=== PATIENT | female | born 1965 | race African-American/Black ===

== ENCOUNTER → 2017-04-02 13:07 | Emergency (ER) | payer MEDICARE, MEDICAID ==
--- NOTE | 2017-04-02 14:27 | RAD ---
INDICATION: Bruising and pain at the right middle finger since injury 2 days earlier TECHNIQUE: 3 views of the right middle finger were obtained. FINDINGS: The bones are normal alignment. Joint spaces appear maintained. No fracture is seen. IMPRESSION: NO EVIDENCE FOR FRACTURE. IF THE PATIENT'S SYMPTOMS PERSIST RECOMMEND FOLLOW-UP IMAGING.
[2017-04-02 14:42] VITALS: BP 144/76
--- NOTE | 2017-04-02 18:10 | ED ---
Upper Extremity Pain - HPI Summary HPI Summary: 51 y/o female with multiple medical co-morbities presents for crush injury to middle finger after catching in cabinet >24 hours prior. Pain not treated well with motrin. patient has increased pain at tip of finger, able to move hand, wrist, no other complaints. - History of Current Complaint Chief Complaint: EDExtremityUpper Stated Complaint: RT HAND/FINGER INJURY Time Seen by Provider: 04/02/17 13:48 Hx Obtained From: Patient Onset/Duration: Started Days Ago Timing: Constant Severity Initially: Moderate Severity Currently: Moderate Pain Location: Finger Character: Sharp, Throbbing Aggravating Factor(s): Movement, Lifting Alleviating Factor(s): Rest Associated Signs & Symptoms: Positive: Swelling, Redness, Bruising, Numbness/ Tingling - Allergies/Home Medications Allergies/Adverse Reactions: Allergies Allergy/AdvReac Type Severity Reaction Status Date / Time Cephalexin [From Keflex] AdvReac Intermediate See Comment Verified 04/02/17 13: 13 statin Allergy Muscle Ache Uncoded 04/02/17 13:13 PMH/Surg Hx/FS Hx/Imm Hx Previously Healthy: No - dm, htn, hiv + Endocrine/Hematology History: Reports: Hx Diabetes Cardiovascular History: Denies: Hx Pacemaker/ICD Musculoskeletal History: Denies: Hx Scoliosis Sensory History: Denies: Hx Hearing Aid Neurological History: Denies: Hx Headaches, Other Neuro Impairments/Disorders Psychiatric History: Denies: Hx Panic Disorder - Surgical History Surgery Procedure, Year, and Place: BILAT CTR, CARDIAC STENT, BIOPSY BREAST ( BENIGN) - Immunization History Date of Tetanus Vaccine: Up to date Date of Influenza Vaccine: Fall 2011 Infectious Disease History: No Infectious Disease History: Reports: Hx Human Immunodeficiency Virus (HIV) Denies: Traveled Outside the [place] in Last 30 Days - Social History Substance Use Type: Reports: None Review of Systems Positive: Arthralgia, Myalgia, Edema Positive: Bruising All Other Systems Reviewed And Are Negative: Yes Physical Exam - Summary Physical Exam Summary: right middle finger distal phalanx with bruising at distal part of nail with subungal hemtoma tender to moderate palpation, moderate edema through DIP, full F/ E of DIP, PIP MCP and all other joints of R UE, rad/ ulnar pulses 2+, Triage Information Reviewed: Yes Vital Signs On Initial Exam: Initial Vitals Temp Pulse Resp BP Pulse Ox 96.7 F 86 16 145/85 97 04/02/17 13:09 04/02/17 13:09 04/02/17 13:09 04/02/17 13:09 04/02/17 13:09 Vital Signs Reviewed: Yes Appearance: Positive: Well-Appearing, No Pain Distress, Well-Nourished Musculoskeletal: Positive: Other - see above Neurological: Positive: Normal, Sensory/Motor Intact, CN Intact II-III Diagnostics - Vital Signs Vital Signs Temp Pulse Resp BP Pulse Ox 04/02/17 14:40 97.3 F 81 16 144/76 04/02/17 13:09 96.7 F 86 16 145/85 97 - Laboratory Lab Statement: Any lab studies that have been ordered have been reviewed, and results considered in the medical decision making process. Course/Dx - Course Course Of Treatment: radiograph neg for fracture, pain medication given, no procedure due to patients increased infection risk and no involvment of nail bed. follow up with PCP - Diagnoses Differential Diagnosis/HQI/PQRI: Positive: Burn, Hematoma, Laceration, Strain, Sprain Provider Diagnoses: Subungual hematoma Discharge - Discharge Plan Condition: Good Disposition: HOME Prescriptions: Hydrocodone-Acetaminophen [[place] 5-325 mg] 1 tab PO Q6HR PRN #5 tab MDD 3 PRN Reason: Pain Patient Education Materials: Crush Injury (ED) Referrals: Soraya London MD [Primary Care Provider] - Additional Instructions: - norco as needed for severe pain - Over the counter medication for mild to moderate pain -
== END | disposition home or self-care (01) ==
LOC: ED 13:07
DX: S60.131A Contusion of right middle finger with damage to nail, initial encounter (principal); W23.0XXA Caught, crushed, jammed, or pinched between moving objects, initial encounter; Y92.9 Unspecified place or not applicable; E11.9 Type 2 diabetes mellitus without complications
CPT/HCPCS: 73140; 99282

== ENCOUNTER 2017-04-06 15:44 | Emergency (ER) | payer MEDICARE, MEDICAID ==
[2017-04-06 16:19] VITALS: BP 114/65
--- NOTE | 2017-04-06 17:23 | UC ---
Skin Complaint HPI - History of Current Complaint Chief Complaint: UCSkin Time Seen by Provider: 04/06/17 17:07 Stated Complaint: INFECTED FINGER Hx Obtained From: Patient Onset/Duration: Sudden Onset - started few days ago when reached into cabinate and sharp piece of wood jabbed finger.Was seen at ER and Xray was taken-no F/B over past few days, R third finger has gotten swollen and painful Aggravating Factor(s): Touch Alleviating Factor(s): Nothing Associated Signs & Symptoms: Positive: Negative Related History: Trauma - Allergy/Home Medications Allergies/Adverse Reactions: Allergies Allergy/AdvReac Type Severity Reaction Status Date / Time Cephalexin [From Keflex] AdvReac Intermediate See Comment Verified 04/06/17 16: 19 statin Allergy Muscle Ache Uncoded 04/06/17 16:19 Home Medications: Home Medications Ascorbic Acid TAB* [Vitamin C TAB*] 500 mg PO DAILY 04/06/17 [History Confirmed 04/06/17] Biotin 1 mg PO 04/06/17 [History] Emtricitabine/Tenofovir (NF) [Descovy (Nf)] 1 tab PO DAILY 04/06/17 [History Confirmed 04/06/17] Folic Acid 5 mg PO 04/06/17 [History] [place]-3 Fatty Acids [Fish Oil] 1,000 mg PO 04/06/17 [History] Omeprazole [Prilosec] 20 mg PO 04/06/17 [History] Review of Systems Constitutional: Negative Skin: Other - see note Respiratory: Negative Cardiovascular: Negative Musculoskeletal: Negative Neurological: Negative Psychological: Negative All Other Systems Reviewed And Are Negative: Yes PMH/Surg Hx/FS Hx/Imm Hx Previously Healthy: Yes Endocrine History: Diabetes Cardiovascular History: Cardiac Disease, Hypertension - Surgical History Surgical History: Yes Surgery Procedure, Year, and Place: BILAT CTR, CARDIAC STENT, BIOPSY BREAST ( BENIGN) - Family History Known Family History: Positive: Hypertension - Social History 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 Lives: With Family Alcohol Use: None Substance Use Type: None Smoking Status (MU): Never Smoked Tobacco Physical Exam Triage Information Reviewed: Yes Appearance: Well-Appearing, No Pain Distress, Well-Nourished Vital Signs: Initial Vital Signs Temp 97.4 F 04/06/17 16:14 Pulse 95 04/06/17 16:14 Resp 18 04/06/17 16:14 BP 114/65 04/06/17 16:14 Pulse Ox 100 04/06/17 16:14 Vital Signs Reviewed: Yes Respiratory Exam: Normal Cardiovascular Exam: Normal Musculoskeletal Exam: Normal Psychological Exam: Normal Skin Exam: Other - swollen, erythemic right 3rd finger with fluctuant area Course/Dx - Course Course Of Treatment: Procedure: R 3rd finger: cleansed with hibiclens solution and small inc made with #11 blade. moderate amount purulent drainage expressed from paronychia. wound cleansed again and bacitracin dressing applied - Differential Diagnoses - Skin Complaint Differential Diagnoses: Abscess, Cellulitis, VRE, Other - paronychia - Diagnoses Provider Diagnoses: paronychia R 3rd finger Discharge - Discharge Plan Condition: Stable Disposition: HOME Prescriptions: Amoxicillin/Clavulanate TAB* [Augmentin TAB 875*] 875 mg PO BID #12 tab Patient Education Materials: Wound Infection (ED) Referrals: Soraya London MD [Primary Care Provider] - 2 Days (if no better) Additional Instructions: soak finger in warm soapy water for 15 minutes twice a day and put ointment and bandaid on take antibiotic as directed elevate hand as much as possible
[2017-04-06] MEDS ORDERED: Amoxicillin/Clavulanate TAB* 875 MG PO ONE (17:42)
== END 2017-04-06 17:58 | disposition home or self-care (01) ==
LOC: UCEAST 15:44
DX: L03.011 Cellulitis of right finger (principal); E11.9 Type 2 diabetes mellitus without complications; I51.9 Heart disease, unspecified; I10 Essential (primary) hypertension; Z95.5 Presence of coronary angioplasty implant and graft; Z88.1 Allergy status to other antibiotic agents
CPT/HCPCS: 10060; 99212; A9270-GY; G0463

== ENCOUNTER 2017-06-11 12:16 | Emergency (ER) | payer MEDICARE, MEDICAID ==
--- NOTE | 2017-06-11 12:44 | UC ---
Skin Complaint HPI - HPI Summary HPI Summary: 52 y/o female presents to the urgent care c/o Rt middle finger red and swollen for the past week. Pt reports she injured same finger on 04/06/2017 with a wooden cabinet, she went to ER ro r/o fracture. 2 days later she developed infection, [facility] to [facility]. she was placed on ABX. 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 Pain is with touch 4/10, she can move finger w /o any difficulty. Pt denies fever, numbness or tingling, SOB, chest pain, abdominal pain, N/V/D - History of Current Complaint Time Seen by Provider: 06/11/17 12:42 Stated Complaint: FINGER INJURY Hx Obtained From: Patient ?: No Onset/Duration: Gradual Onset, Lasting Weeks - 1 week, Still Present Skin Exposure Onset/Duration: Weeks Ago Timing: Constant Onset Severity: Mild Current Severity: Moderate Pain Intensity: 5 Pain Scale Used: 0-10 Numeric Location: Hand (Right) - Rt middle finger with small abscess Character: Swelling, Redness, Painful Aggravating Factor(s): Touch Alleviating Factor(s): Cold, Cold Compresses Associated Signs & Symptoms: Positive: Tenderness. Negative: Fever, Chills, Red Streaks Related History: Trauma Prior Episode Dx as Allergic Reactions to:: paronychia on 04/06/2017 - Allergy/Home Medications Allergies/Adverse Reactions: Allergies Allergy/AdvReac Type Severity Reaction Status Date / Time Cephalexin [From Keflex] AdvReac Intermediate See Comment Verified 06/11/17 13: 08 statin Allergy Muscle Ache Uncoded 06/11/17 13:08 Review of Systems Constitutional: Negative Skin: Other - small cyst at the Rt middle finger with swelling, redness and pain Eyes: Negative ENT: Negative Respiratory: Negative Cardiovascular: Negative Gastrointestinal: Negative Genitourinary: Negative Motor: Negative Neurovascular: Negative Musculoskeletal: Negative Neurological: Negative Psychological: Negative Is Patient Immunocompromised?: No All Other Systems Reviewed And Are Negative: Yes PMH/Surg Hx/FS Hx/Imm Hx Previously Healthy: Yes Endocrine History: Diabetes, Dyslipidemia Cardiovascular History: Myocardial Infarction GI/ History: Gastroesophageal Reflux - Surgical History Surgical History: Yes Surgery Procedure, Year, and Place: BILAT CTR, CARDIAC STENT, BIOPSY BREAST ( BENIGN) - Family History Known Family History: Positive: Hypertension, Diabetes - Social History Alcohol Use: None Substance Use Type: None Smoking Status (MU): Never Smoked Tobacco Physical Exam Triage Information Reviewed: Yes - Additional Comments Vital Signs Reviewed: Yes General: well developed, well nourished female sitting in the examining table w/ o any apparent distress Eye Exam: Normal Eyes: Positive: Conjunctiva Clear - PERRLA, EOMI, fundi grossly normal ENT: Positive: Normal ENT inspection, Hearing grossly normal, Pharynx normal, TMs normal Neck: Positive: Supple, Nontender, No Lymphadenopathy Respiratory: Positive: Chest non-tender, Lungs clear, Normal breath sounds, No respiratory distress Cardiovascular: Positive: RRR, No Murmur, Pulses Normal, Brisk Capillary Refill Abdomen Description: Positive: Nontender, No Organomegaly, Soft. Negative: CVA Tenderness (R), CVA Tenderness (L) Bowel Sounds: Positive: Present Musculoskeletal: Positive: Strength Intact, ROM Intact, No Edema Neurological: Positive: Alert, Muscle Tone Normal Psychological Exam: Normal Skin: Positive: RT # 3 phalanx near DIPJ with a small erythematous pustule that is indurated and fluctuates, tender to palpation, swollen, and warm to touch about .5cm in size. FROM of phalanx, sensation is intact, capillary refill WNL, reflexes WNL Course/Dx - Course Course Of Treatment: 52 y/o female presents to the urgent care c/o Rt middle finger red and swollen for the past week. Pt reports she injured same finger on 04/06/2017 with a wooden cabinet, she went to ER ro r/o fracture. 2 days later she developed infection, she came to the [facility] for [facility]. she was placed on ABX. 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 Pain is with touch 4/10, she can move finger w/o any difficulty. Pt denies fever, numbness or tingling, SOB, chest pain, abdominal pain, N/V/D. Hx obtained. Pt with a small abscess at the RT #3 phalanx DIPJ on examination. I&D of abscess procedure:The procedure was explained and consent obtained. [place] protocol performed. Pt declined Lidocaine. area cleaned with iodine 3X. Sterile drape and prep were done. The fluctuant center was incised with #11 blade scalpel. small amount of serosanguinous material was expressed . wound cultures obtained and sent to lab to r/o MRSA. The wound was irrigated with normal saline. Bacitracin topical ointment applied and wound covered with sterile dressing. The patient tolerated the procedure well. Pt Rx Bactrim PO and tylenol PO for pain. Advised to return to the urgent care for wound check up. Pt advised fever develops and pain increase despite ABX to go immediately to the ER for further management. Pt understood and agreed with D/C instructions. Left the clinic ambulating A&OX3. - Differential Diagnoses - Skin Complaint Differential Diagnoses: Abscess, Cellulitis, Contact Dermatitis, Local Allergic Reaction, Lymphadenitis, MRSA - Diagnoses Provider Diagnoses: 1- Rt #3 phalanx with small abscess near the DIP Discharge - Discharge Plan Condition: Stable Disposition: HOME Prescriptions: Acetaminophen TAB* [Tylenol TAB*] 650 mg PO Q4H PRN #20 tab PRN Reason: Pain Bacitracin OINTMENT* 1 applic TOPICAL TID #1 tube Sulfamethox/Trimethoprim DS* [Bactrim DS 800/160 TAB*] 1 tab PO BID #20 tab Patient Education Materials: Acute Wound Care (ED), Abscess (ED) Referrals: Soraya London MD [Primary Care Provider] - 3 Days Additional Instructions: 1-Please take full course of antibiotic to avoid resistance. Keep wound clean and dry with a sterile dressing. Apply bacitracin topical as directed 2-. Take Tylenol PO q6-8hrs prn for pain or swelling. 4-If you develop fever or redness despite antibiotic please go to the ER immediately or return to the Urgent care. 5- Wound culture sent to lab, if any abnormal result you will receive a call from us.
[2017-06-11 13:17] VITALS: BP 122/75
--- NOTE | 2017-06-12 10:08 | UC ---
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
--- NOTE | 2017-06-13 16:09 | UC ---
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
== END 2017-06-11 14:03 | disposition home or self-care (01) ==
LOC: UCEAST 12:16
DX: L02.511 Cutaneous abscess of right hand (principal)
CPT/HCPCS: 87070; 87205; 87640; 87641; 99212; G0463

== ENCOUNTER 2020-03-31 14:37 | Inpatient (IN) ==
[2020-03-31] MEDS ORDERED: methylPREDNISolone 125 mg 2 ML VIAL IV ONE (14:39)
[2020-03-31] MEDS ORDERED: NS 0.9% 1000 ml BAG 1,000 ML IV ONE (14:39)
[2020-03-31] MEDS ORDERED: Albuterol 2.5mg/3 ml (0.083%) NEB.SOLN INH ONE (14:39)
[2020-03-31 16:12] LABS: ABS Lymphocytes 1.1 10^3/ul (1.0-4.8); ABS Monocytes 0.4 10^3/ul (0-0.8); ABS Neutrophils 3.2 10^3/ul (1.5-7.7); Hematocrit 40 % (35-47); Hemoglobin 13.6 g/dL (12.0-16.0); Lymphocyte % 24.5 %; Mean Corpuscular HGB Conc 34 g/dL (31-36); Mean Corpuscular Hemoglobin 31 pg (27-31); Mean Corpuscular Volume 90 fL (80-97); Mean Platelet Volume 7.2 fL (7.4-10.4); Platelet Count 230 10^3/uL (150-450); Red Blood Count 4.42 10^6 /uL (3.70-4.87); Red Cell Distribution Width 15 % (10-15); White Blood Count 4.7 10^3/uL (3.5-10.8)
[2020-03-31 16:38] LABS: HCG Pregnancy 1.76 mIU/mL
[2020-03-31 16:48] LABS: Albumin 4.1 g/dL (3.2-5.2); Albumin/Globulin Ratio 1.1 (1-3); BUN/Creatinine Ratio 15.9 (8-20); C Reactive Protein 55.75 mg/L (<8.01); EGFR African American 87.3 (>60); EGFR Non-African American 72.1 (>60); Globulin 3.6 g/dL (2-4); Potassium 4.5 mmol/L (3.5-5.0); Total Bilirubin 0.4 mg/dL (0.2-1.0); Total Protein 7.7 g/dL (6.4-8.9)
[2020-03-31] MEDS ORDERED: Dextrose 50% Syringe 50 ml 25 GM/50 ML SYRINGE IV PUSH PRN (17:43)
[2020-03-31] MEDS ORDERED: Albuterol HFA INHALER 8 gm MDI INH PRN (17:55)
[2020-03-31] MEDS ORDERED: Al Hydrox/Mg Hydrox/Simet LIQ 30 ML UDC PO PRN (18:23)
[2020-03-31] MEDS ORDERED: Ondansetron 4 mg VIAL 2 MG/ML 2 ml VIAL IV PRN (18:23)
[2020-03-31] MEDS ORDERED: Enoxaparin 40 MG/0.4 ML SYR SUBCUT SCH (19:00)
[2020-03-31] MEDS ORDERED: Remdesivir 5 MG/ML LIQ IV Vial 200 MG in NS 0.9% 250 ml 210 ML IV ONE (19:08)
[2020-03-31] MEDS ORDERED: Iodixanol (CONTRAST) 320 MG/ML 100 ML SDV IV ONE (20:13)
[2020-03-31] MEDS ORDERED: Remdesivir 5 MG/ML LIQ IV Vial 100 MG in NS 0.9% 250 ml 230 ML IV SCH (22:00)
[2020-03-31] MEDS: Enoxaparin 30 MG/0.3 ML SYR SUBCUT SCH (22:04)
[2020-04-01 01:14] LABS: Influenza A Molecular Negative (Negative); Influenza B Molecular Negative (Negative)
[2020-04-01] MEDS: Enoxaparin 30 MG/0.3 ML SYR SUBCUT SCH ×2 (08:58→20:06)
[2020-04-01] MEDS: Aspirin EC 81 mg TAB.EC (enteric coated) PO SCH (08:59)
[2020-04-01] MEDS: Dexamethasone IV 4 MG/ML VIAL 1 ml VIAL IV SLOW PU SCH (08:59)
[2020-04-01] MEDS ORDERED: EMTRICITABINE PO SCH (09:00)
[2020-04-01] MEDS ORDERED: TENOFOVIR PO SCH (09:00)
[2020-04-01] MEDS: Remdesivir 5 MG/ML LIQ IV Vial 100 MG in NS 0.9% 250 ml 230 ML IV SCH (21:31)
[2020-04-02] MEDS: TENOFOVIR PO SCH (09:25)
[2020-04-02] MEDS: Dexamethasone IV 4 MG/ML VIAL 1 ml VIAL IV SLOW PU SCH (09:25)
[2020-04-02] MEDS: Aspirin EC 81 mg TAB.EC (enteric coated) PO SCH (09:25)
[2020-04-02] MEDS: EMTRICITABINE PO SCH (09:25)
[2020-04-02] MEDS: Enoxaparin 30 MG/0.3 ML SYR SUBCUT SCH ×2 (09:34→22:29)
[2020-04-02] MEDS: Remdesivir 5 MG/ML LIQ IV Vial 100 MG in NS 0.9% 250 ml 230 ML IV SCH (22:33)
[2020-04-03] MEDS: Aspirin EC 81 mg TAB.EC (enteric coated) PO SCH (08:50)
[2020-04-03] MEDS: Dexamethasone IV 4 MG/ML VIAL 1 ml VIAL IV SLOW PU SCH (08:50)
[2020-04-03] MEDS: EMTRICITABINE PO SCH (08:50)
[2020-04-03] MEDS: TENOFOVIR PO SCH (08:50)
[2020-04-03] MEDS: Enoxaparin 30 MG/0.3 ML SYR SUBCUT SCH (08:52)
[2020-04-03 12:59] VITALS: BP 133/64
== END 2020-04-03 15:25 | disposition home or self-care (01) | DRG 177 ==
LOC: ED 14:37 → MED 18:23
PROVIDERS: ADMIT Internal Medicine; ATTEND Internal Medicine

== ENCOUNTER 2023-12-10 02:38 | Observation (INO) ==
[2023-12-10 03:02] LABS: ABS Eosinophils 0.1 10^3/uL (0.0-0.5); ABS Lymphocytes 2.4 10^3/uL (1.0-4.8); ABS Monocytes 0.4 10^3/uL (0.0-0.9); ABS Neutrophils 3.5 10^3/uL (1.5-7.6); ABS Nucleated RBC 0.01 10^3/ul; Eosinophil % 2.2 %; Hematocrit 45.5 % (35-45); Hemoglobin 15.2 g/dL (11.5-14.3); Lymphocyte % 36.4 %; Mean Corpuscular Hemoglobin 31.3 pg (27-33); Mean Corpuscular Hgb Conc 33.5 g/dL (31-36); Mean Corpuscular Volume 93.4 fL (80-97); Mean Platelet Volume 7.3 fL (7.5-11.2); Nucleated Red Blood Cells % 0.2 %/100WBC (0.0-0.8); Platelet Count 238 10^3/uL (150-450); Red Blood Count 4.87 10^6/uL (3.63-4.92); Red Cell Distribution Width 14.9 % (12-17); White Blood Count 6.5 10^3/uL (3.8-11.8)
[2023-12-10 03:14] LABS: INR 0.93 (0.83-1.13)
[2023-12-10 03:28] LABS: High Sens Troponin Baseline < 3 pg/mL (<15)
[2023-12-10 03:43] LABS: ALT 21 U/L (7-52); AST 17 U/L (13-39); Albumin 4.5 g/dL (3.2-5.2); Albumin/Globulin Ratio 1.6 (1-3); Alkaline Phosphatase 109 U/L (35-149); Anion Gap 9 mmol/L (2-16); Blood Urea Nitrogen 18 mg/dL (6-24); CO2 Carbon Dioxide 24 mmol/L (22-32); Chloride 105 mmol/L (101-111); Creatinine, Serum 1.07 mg/dL (0.51-0.95); Globulin 2.8 g/dL (2-4); Glucose 146 mg/dL (70-100); Potassium 4.5 mmol/L (3.5-5.0); Sodium 138 mmol/L (135-145); Total Bilirubin 0.4 mg/dL (0.2-1.0); Total Protein 7.3 g/dL (6.4-8.9); eGFR CKD-EPI 59.5 (>60)
[2023-12-10] MEDS: Iodixanol (CONTRAST) 320 MG/ML 100 ML SDV IV ONE (04:32)
[2023-12-10 04:44] LABS: High Sensitivity Troponin 1 Hr < 3 pg/mL (<15)
[2023-12-10] MEDS ORDERED: Polyethylene Glycol 3350 17 GM PACKET PO PRN (05:39)
[2023-12-10] MEDS ORDERED: Senna TAB 8.6 mg TAB PO PRN (05:39)
[2023-12-10] MEDS ORDERED: Dextrose 50% Syringe 50 ml 25 GM/50 ML SYRINGE IV PUSH PRN ×2 (05:42→17:00)
[2023-12-10 06:34] LABS: Cholesterol 141 mg/dL; LDL Cholesterol 43 mg/dL; Triglycerides 320 mg/dL
[2023-12-10] MEDS: Lactated Ringers 1000 ml BAG 1,000 ML IV SCH (07:21)
[2023-12-10] MEDS ORDERED: Sulfur Hexaflouride MICROSPHR 25 MG VIAL ONE (07:59)
[2023-12-10] MEDS: methylPREDNISolone SOD SUCC 40 mg/ml 1 ml VIAL IV ONE (10:31)
[2023-12-10] MEDS: Famotidine IV 10 MG/ML 2 ml VIAL (20 mg) IV SLOW PU ONE (10:32)
[2023-12-10] MEDS: NF: Bictegravir/Emtricit/Tenofov 1 TABLET PO SCH (10:32)
[2023-12-10] MEDS: Aspirin EC 81 mg TAB.EC (enteric coated) PO SCH (10:32)
[2023-12-11 09:21] VITALS: BP 138/97
== END 2023-12-11 11:00 | disposition home or self-care (01) ==
LOC: ED 02:38 → EDHOLD 02:38 → SUATTDRO 05:39 → MED 08:07
PROVIDERS: ADMIT Internal Medicine; ATTEND Hospitalist